=== PATIENT | male | born 1990 | race Caucasian/White ===

== ENCOUNTER 2016-11-29 10:50 | Emergency (ER) | payer BC ==
[~2016-11-29] VITALS: Ht 190.5 cm; Wt 107.3 kg
[2016-11-29 12:23] LABS: HEMATOCRIT 48.3 % (38.0-50.0); MCH 30.5 PG (29.0-34.0); MCV 87.2 FL (86-99); MEAN PLAT.VOLUME 10.6 uM^3 (9.0-12.4); PLATELET COUNT 127 K/uL (156-360); RBC DIS.WIDTH-CV 12.2 % (11.8-14.6); RBC DIS.WIDTH-SD 39.1 % (39-53); RED BLOOD COUNT 5.54 M/uL (4.00-5.50); WHITE BLOOD COUNT 4.6 K/uL (4.1-10.2)
[2016-11-29 12:36] LABS: CHLORIDE 102 mEq/L (99-109); SODIUM 139 mEq/L (136-147)
[2016-11-29 12:37] LABS: GLUCOSE 139 mg/dL (70-99)
[2016-11-29 12:39] LABS: ANION GAP 11 MEQ/L (2-14)
[2016-11-29 12:41] LABS: GFR ESTIMATE (CALCULATED) > 59 mL/min/
[2016-11-29 12:42] LABS: UREA NITROGEN (BUN) 13 mg/dL (9-23)
[2016-11-29 12:43] LABS: TROP-I INTERPRETATION NEGATIVE; TROPONIN-I < 0.01 ng/mL (0.0-0.30)
[2016-11-29] MEDS ORDERED: NEXIUM40 MG PO (12:55)
[2016-11-29] MEDS ORDERED: ATARAX,VISTARIL50 MG PO (12:55)
[2016-11-29 13:10] VITALS: BP 157/91
== END 2016-11-29 13:11 | disposition home or self-care (01) ==
LOC: EME 10:50
DX: R07.89 Other chest pain (principal); Z87.891 Personal history of nicotine dependence
CPT/HCPCS: 71020; 80048; 84484; 85027; 93005; 99281; 99284